=== PATIENT | female | born 1970 | race Caucasian/White ===

== ENCOUNTER 2017-06-03 12:38 | Emergency (ER) | payer BC ==
[~2017-06-03] VITALS: Ht 152.4 cm; Wt 68.0 kg
[~2017-06-03 12:38] MED LIST: AMITRIPTYLINE H25 M2 PO; FLEXERIL PO; NAPROSYN500 MG PO; SYNTHROID25 MCG PO
[2017-06-03] MEDS ORDERED: SYNTHROID112 MCG PO (12:52)
[2017-06-03 13:19] LABS: URINE BILIRUBIN NEGATIVE (Negative); URINE BLOOD NEGATIVE (Negative); URINE CLARITY CLEAR; URINE COLOR YELLOW; URINE GLUCOSE-RANDOM NEGATIVE (Negative); URINE KETONES NEGATIVE (Negative); URINE LEUKOCYTES-REFLEX NEGATIVE (Negative); URINE NITRITE-REFLEX NEGATIVE (Negative); URINE PROTEIN NEGATIVE (Negative); URINE SPECIFIC GRAVITY <= 1.005 (1.005-1.030); URINE UROBILINOGEN 0.2 E.U./dl (0.2-1.0)
[2017-06-03 13:27] LABS: AMP/METHAMP Negative (Negative); BARBITURATES Negative (Negative); BENZODIAZEPINES Negative (Negative); COCAINE Negative (Negative); METHADONE Negative (Negative); OPIATES Negative (Negative); PCP Negative (Negative); THC Negative (Negative)
[2017-06-03 13:44] LABS: ABSOLUTE BASOPHILS 0.1 thou/uL (0.0-0.2); ABSOLUTE EOSINOPHILS 0.3 thou/uL (0.0-0.7); ABSOLUTE LYMPHOCYTES 2.5 thou/uL (0.8-5.3); ABSOLUTE MONOCYTES 0.5 thou/uL (0.0-1.2); ABSOLUTE NEUTROPHILS 4.6 thou/uL (1.6-8.1); BASOPHILS 1.2 %; EOSINOPHILS 3.7 %; HEMATOCRIT 38.8 % (37.0-47.0); LYMPHOCYTES 31.1 %; MCH 31.4 pg (26.0-34.0); MCHC 33.5 g/dL (28.0-37.0); MCV 93.6 fL (80.0-100.0); MONOCYTES 6.6 %; MPV 7.5 fl. (7.2-11.1); NUCLEATED RBCS 0 /100WBC; PLATELET COUNT* 374 thou/uL (150-400); POLYS 57.4 %; RBC 4.15 mil/uL (4.20-5.00); RDW-CV 14.4 % (10.5-14.5); WBC 8.1 thou/uL (4.0-11.0)
[2017-06-03 14:03] LABS: ANION GAP 8 mmol/L (7-16); BUN 9 mg/dL (7-18); CALCIUM 9.1 mg/dL (8.5-10.1); CHLORIDE 104 mmol/L (98-107); CO2 28 mmol/L (21-32); CREATININE 0.9 mg/dL (0.6-1.3); GLUCOSE 89 mg/dL (70-99); SODIUM 140 mmol/L (136-145)
[2017-06-03 14:10] LABS: ALBUMIN 3.8 g/dL (3.4-5.0); ALKALINE PHOSPHATASE 108 U/L (46-116); SGOT 16 U/L (15-37); SGPT 14 U/L (30-65); TOTAL BILIRUBIN 0.3 mg/dL (<0.1-1.0); TOTAL PROTEIN 8.5 g/dL (6.4-8.2); TROPONIN-I LEVEL <0.06 ng/mL (<0.06)
[2017-06-03 14:32] LABS: INFLUENZA A ANTIGEN None Detected (None Detect); INFLUENZA B ANTIGEN None Detected (None Detect)
[2017-06-03 16:31] LABS: CSF GLUCOSE 58 mg/dl (40-70); CSF PROTEIN 39.9 mg/dl (15-45)
[2017-06-03 17:08] LABS: CSF CLARITY CLEAR; CSF COLOR CLEAR; CSF RBC 0 /mm3; CSF WBC 0 /mm3 (0-10); VOLUME 9 ml
[2017-06-03] MEDS ORDERED: FLEXERIL PO (17:14)
[2017-06-03] MEDS ORDERED: TORADOL 10 MG T10 MG PO (17:14)
[2017-06-03] MEDS ORDERED: DOXYCYCLINE MO100 M1 PO (17:19)
[2017-06-03] MEDS ORDERED: DIFLUCAN150 MG PO (17:19)
[2017-06-03 17:37] VITALS: BP 114/63
== END 2017-06-03 17:38 | disposition home or self-care (01) ==
LOC: M.ERS 12:38
PROVIDERS: Emergency Medicine Emergency Medical Services; Physician Assistant
DX: J18.8 Other pneumonia, unspecified organism (principal); M53.82 Other specified dorsopathies, cervical region; F17.210 Nicotine dependence, cigarettes, uncomplicated; Z88.8 Allergy status to other drugs, medicaments and biological substances

== ENCOUNTER → 2019-12-26 | Outpatient (CLI) | payer BC ==
[~2019-12-26] MED LIST changes: +DIFLUCAN150 MG PO; +DOXYCYCLINE MO100 M1 PO; +SYNTHROID112 MCG PO; +TORADOL 10 MG T10 MG PO
== END ==
LOC: M.WC 12-25 10:00
PROVIDERS: ATTEND Family Medicine
DX: T81.89XA Other complications of procedures, not elsewhere classified, initial encounter (principal); I25.10 Atherosclerotic heart disease of native coronary artery without angina pectoris; I50.22 Chronic systolic (congestive) heart failure; I50.9 Heart failure, unspecified; K21.9 Gastro-esophageal reflux disease without esophagitis; F32.9 Major depressive disorder, single episode, unspecified; F41.9 Anxiety disorder, unspecified; Z87.891 Personal history of nicotine dependence; Z90.710 Acquired absence of both cervix and uterus; Z95.0 Presence of cardiac pacemaker; Z79.82 Long term (current) use of aspirin; Y92.238 Other place in hospital as the place of occurrence of the external cause; Y83.8 Other surgical procedures as the cause of abnormal reaction of the patient, or of later complication, without mention of misadventure at the time of the procedure

== ENCOUNTER → 2019-12-30 | Outpatient (CLI) | payer BC ==
--- NOTE | 2019-12-30 14:21 | 2DMMODE ---
[place] [address] 2 D/M-MODE ECHOCARDIOGRAM Name: BOBBY MORALES Cassandra Room: [facility].#: [id number] Admission: 12/30/19 Attend Phys: Raad Lees, Discharge: Date of : 72 Date of Service: 12/30/19 1420 Report #: [id number] THIS REPORT FOR: cc: Sarina Ayoub Maggie M. DO Blick, David R. MD [facility] ~ APPROVED REPORT Study performed: 12/30/2019 11:57:44 EXAM: Comprehensive 2D, Doppler, and color-flow Echocardiogram BSA: 1.60 HR: 83 bpm BP: 109/70 mmHg Other Information Study Quality: Fair Indications CAD 2D Dimensions IVSd: 10.58 (7-11mm) LVOT Diam: 20.84 (18-24mm) LVDd: 44.83 mm PWd: 9.64 (7-11mm) Ascending Ao: 21.95 (22-36mm) LVDs: 37.01 (25-40mm) Aortic Root: 20.28 mm Volumes Left Atrial Volume (Systole) LA ESV Index: 25.80 mL/m2 Aortic Valve AoV Peak Christopher.: 2.38 m/s AO Peak Gr.: 22.72 mmHg LVOT Max P.48 mmHg AO Mean Gr.: 12.20 mmHg LVOT Mean P.08 mmHg LVOT Max V: 0.79 m/s AO V2 VTI: 37.04 cm LVOT Mean V: 0.47 m/s STEWART (VTI): 1.14 cm2 LVOT V1 VTI: 12.37 cm Mitral Valve MV Decel. Time: 156.85 ms MV PHT: 45.49 [place] [address] 2 D/M-MODE ECHOCARDIOGRAM Name: BOBBY MORALES Room: [facility]#: [id number] Admission: 12/30/19 Attend Phys: Raad Lees, Discharge: Date of : 72 Date of Service: 12/30/19 1420 Report #: [id number] MVA (PHT): 4.84 cm2 TDI Medial E' Christopher.: 0.08 m/s Lateral E' Christopher.: 0.10 m/s Pulmonary Valve PV Peak Christopher.: 0.80 m/s PV Peak Gr.: 2.56 mmHg Left Ventricle Left ventricle is mildly dilated. There is normal left ventricular wall thickness. Left ventricular systolic function is severely decreased. LVEF is 25%. This study is not technically sufficient to allow evaluation of the LV diastolic function. Right Ventricle The right ventricle is normal size. The right ventricular systolic function is normal. Pacemaker lead is present in the right ventricle. Atria The left atrium size is normal. Pacemaker lead is present in the right atrium. Aortic Valve Mechanical aortic valve is present. No aortic regurgitation is present. There is no aortic valvular stenosis. Mitral Valve There is a mechanical mitral valve. There is no mitral valve regurgitation noted. No evidence of mitral valve stenosis. Tricuspid Valve Tricuspid valve replacement There is no tricuspid valve regurgitation noted. Pulmonic Valve The pulmonary valve is normal in structure. There is no pulmonic valvular regurgitation. Great Vessels The aortic root is normal in size. IVC is normal in size and collapses >50% with inspiration. Pericardium There is [place] [address] 2 D/M-MODE ECHOCARDIOGRAM Name: BOBBY MORALES Room: [facility]#: [id number] Admission: 12/30/19 Attend Phys: Raad Lees, Discharge: Date of : 72 Date of Service: 12/30/19 142 Report #: [id number] <Conclusion> LVEF is 25%. Mechanical aortic valve is present. There is a mechanical mitral valve. Tricuspid valve replacement <ELECTRONICALLY SIGNED> By: Dallas Blood MD, [facility] 12/30/19 142 19 1420 Dallas Blood MD, FACC /INF
== END ==
LOC: M.CRD 11:00
PROVIDERS: ATTEND Internal Medicine Cardiovascular Disease
DX: I25.10 Atherosclerotic heart disease of native coronary artery without angina pectoris (principal); Z95.4 Presence of other heart-valve replacement

== ENCOUNTER → 2020-01-03 | Outpatient (CLI) | payer BC | LOC: M.WC 03:30 | PROVIDERS: ATTEND Family Medicine | DX: T81.89XD Other complications of procedures, not elsewhere classified, subsequent encounter (principal); I70.235 Atherosclerosis of native arteries of right leg with ulceration of other part of foot; L97.511 Non-pressure chronic ulcer of other part of right foot limited to breakdown of skin; I25.10 Atherosclerotic heart disease of native coronary artery without angina pectoris; I50.22 Chronic systolic (congestive) heart failure; F41.9 Anxiety disorder, unspecified; F32.9 Major depressive disorder, single episode, unspecified; Z95.1 Presence of aortocoronary bypass graft; Z87.891 Personal history of nicotine dependence; Z79.82 Long term (current) use of aspirin; Z79.01 Long term (current) use of anticoagulants; Y83.8 Other surgical procedures as the cause of abnormal reaction of the patient, or of later complication, without mention of misadventure at the time of the procedure ==

== ENCOUNTER → 2020-01-10 | Outpatient (CLI) | payer BC ==
[2020-01-10 11:50] LABS: INR 1.5; PROTIME 15.1 Seconds (9.20-11.50)
== END ==
LOC: M.WC 01:46 → M.LAB 01:46 → M.WC 10:00
PROVIDERS: ATTEND Family Medicine
DX: T81.89XD Other complications of procedures, not elsewhere classified, subsequent encounter (principal); L03.116 Cellulitis of left lower limb; I25.10 Atherosclerotic heart disease of native coronary artery without angina pectoris; I50.22 Chronic systolic (congestive) heart failure; K21.9 Gastro-esophageal reflux disease without esophagitis; F41.9 Anxiety disorder, unspecified; F32.9 Major depressive disorder, single episode, unspecified; Z95.1 Presence of aortocoronary bypass graft; Z87.891 Personal history of nicotine dependence; Y83.8 Other surgical procedures as the cause of abnormal reaction of the patient, or of later complication, without mention of misadventure at the time of the procedure

== ENCOUNTER → 2020-01-17 | Outpatient (CLI) | payer BC | LOC: M.WC 03:52 | PROVIDERS: ATTEND Family Medicine | DX: T81.89XD Other complications of procedures, not elsewhere classified, subsequent encounter (principal); I25.10 Atherosclerotic heart disease of native coronary artery without angina pectoris; I50.22 Chronic systolic (congestive) heart failure; K21.9 Gastro-esophageal reflux disease without esophagitis; R26.9 Unspecified abnormalities of gait and mobility; D68.9 Coagulation defect, unspecified; F41.9 Anxiety disorder, unspecified; F32.9 Major depressive disorder, single episode, unspecified; Z95.1 Presence of aortocoronary bypass graft; Z87.891 Personal history of nicotine dependence; Y83.8 Other surgical procedures as the cause of abnormal reaction of the patient, or of later complication, without mention of misadventure at the time of the procedure ==

== ENCOUNTER → 2020-01-22 | Outpatient (CLI) | payer BC | LOC: M.ULTRA 01-20 09:00 | PROVIDERS: ATTEND Family Medicine | DX: T81.89XA Other complications of procedures, not elsewhere classified, initial encounter (principal) ==

== ENCOUNTER → 2020-01-24 | Outpatient (CLI) | payer BC | LOC: M.WC 04:39 | PROVIDERS: ATTEND Family Medicine | DX: T81.89XD Other complications of procedures, not elsewhere classified, subsequent encounter (principal); I25.10 Atherosclerotic heart disease of native coronary artery without angina pectoris; I50.22 Chronic systolic (congestive) heart failure; I73.9 Peripheral vascular disease, unspecified; K21.9 Gastro-esophageal reflux disease without esophagitis; F32.9 Major depressive disorder, single episode, unspecified; F41.9 Anxiety disorder, unspecified; Z95.828 Presence of other vascular implants and grafts; Z87.891 Personal history of nicotine dependence; Z99.2 Dependence on renal dialysis; Y83.8 Other surgical procedures as the cause of abnormal reaction of the patient, or of later complication, without mention of misadventure at the time of the procedure ==